=== PATIENT | male | born 1985 | race Caucasian/White ===

== ENCOUNTER 2018-02-04 09:42 | Emergency (ER) | payer MEDICAID ==
[~2018-02-04] VITALS: Ht 182.9 cm; Wt 84.1 kg
[2018-02-04 09:46] VITALS: Ht 182.9 cm; Wt 84.1 kg
[2018-02-04] MEDS ORDERED: LISINOPRIL5 MG PO (09:47)
[2018-02-04] MEDS ORDERED: ZOLOFT50 MG PO (09:47)
[2018-02-04] MEDS ORDERED: KLONOPIN1 MG PO (09:48)
[2018-02-04 12:50] VITALS: BP 134/98
== END 2018-02-04 12:50 | disposition home or self-care (01) ==
LOC: D.ER 09:42
DX: R22.31 Localized swelling, mass and lump, right upper limb (principal); I10 Essential (primary) hypertension; F17.200 Nicotine dependence, unspecified, uncomplicated